=== PATIENT | male | born 1960 | race Caucasian/White ===

== ENCOUNTER → 2018-01-02 | Outpatient (CLI) | payer OTHER ==
[~2018-01-02] MED LIST: ATARAX,VISTARIL50 MG PO; CARBIDOPA/LEVOD1 TA1 PO; METHOCARBAMOL750 M1 PO; NEURONTIN300 MG PO; ZOFRAN4 MG PO
== END | disposition home or self-care (01) ==
LOC: RESCLI 01:20
DX: D53.9 Nutritional anemia, unspecified (principal); F19.10 Other psychoactive substance abuse, uncomplicated; R31.9 Hematuria, unspecified; R06.09 Other forms of dyspnea; G62.9 Polyneuropathy, unspecified; R03.0 Elevated blood-pressure reading, without diagnosis of hypertension; F17.210 Nicotine dependence, cigarettes, uncomplicated; Z71.6 Tobacco abuse counseling; Z76.89 Persons encountering health services in other specified circumstances; Z20.5 Contact with and (suspected) exposure to viral hepatitis

== ENCOUNTER → 2018-01-31 | Outpatient (CLI) | payer OTHER | END | disposition home or self-care (01) | LOC: RESCLI 03:40 | DX: I10 Essential (primary) hypertension (principal); F19.10 Other psychoactive substance abuse, uncomplicated; G62.9 Polyneuropathy, unspecified; D53.9 Nutritional anemia, unspecified; F14.10 Cocaine abuse, uncomplicated; R06.09 Other forms of dyspnea; Z72.0 Tobacco use; Z71.6 Tobacco abuse counseling; Z20.5 Contact with and (suspected) exposure to viral hepatitis ==

== ENCOUNTER → 2018-02-22 | Outpatient (CLI) | payer OTHER | END | disposition home or self-care (01) | LOC: RESCLI 01:37 → CP 03:11 → RESCLI 18:41 | DX: I10 Essential (primary) hypertension (principal); B19.20 Unspecified viral hepatitis C without hepatic coma; G25.81 Restless legs syndrome; G62.9 Polyneuropathy, unspecified; F19.10 Other psychoactive substance abuse, uncomplicated; Z79.899 Other long term (current) drug therapy; Z88.8 Allergy status to other drugs, medicaments and biological substances; Z87.891 Personal history of nicotine dependence ==

== ENCOUNTER 2018-07-30 12:37 | Inpatient (IN) | payer OTHER ==
[~2018-07-30] VITALS: Ht 175.3 cm; Wt 61.8 kg
--- NOTE | ~2018-07-30 | EKG ---
[place], [place] ELECTROCARDIOGRAM REPORT NAME: RAMÍREZ BOURGEOIS UNIT #: [id number] ROOM: 503 DOCTOR: SEVEN DRAFT REPORT BIRTHDATE: [birth year] [facility] Test Date: 2018-07-30 Test Time: 17:13:06 Pat Name: RAMÍREZ BOURGEOIS Department: Room: 503 2 Gender: M Director Of Procurement: 0012 : 1960 Requested By: LEONID BEINTES Order Number: [id number] Reading MD: Martín Castro MD Measurements Intervals [place] Rate: 93 P: 84 ME: 146 QRS: 70 QRSD: 86 T: 70 QT: 377 QTc: 469 Interpretive Statements Sinus rhythm with PACs Probable left atrial enlargement Electronically Signed On 07-30-2018 17:19:34 PST by Martín Castro MD CM:EKGRPT:ELECTROCARDIOGRAM REPORT 12 18 LEONID DURON DRAFT REPORT LEONID BENITES DO
[2018-07-30 14:30] VITALS: BP 123/88
[2018-07-30 14:39] LABS: BASO % 0.3 % (0.0-1.0); EOS % 0.3 % (1.0-4.0); HEMOGLOBIN 13.9 g/dl (14.0-18.0); LYMPH % 20.8 % (27.0-41.0); MEAN CORPUSCULAR HGB 33.1 pg (27.0-31.0); MEAN CORPUSCULAR HGB CONC 33.1 g/dl (33.0-37.0); MEAN PLATELET VOLUME 8.9 fl (9.6-12.3); MONO # 0.9 10*3/uL (0.1-1.0); MONO % 8.9 % (3.0-9.0); NEUT # 6.8 10*3/uL (2.3-7.9); NEUT % 69.4 % (47.0-73.0); PLATELET COUNT AUTOMATED 304 10*3/uL (130-400); RED CELL DISTRI WIDTH 13.5 % (0-14.5); WHITE BLOOD COUNT 9.8 10*3/uL (4.8-10.8)
[2018-07-30 14:54] LABS: ALBUMIN 3.7 gm/dl (3.1-4.5); ALKALINE PHOSPHATASE 93 U/L (45-117); BUN 12 mg/dl (7-24); CHLORIDE 103 mmol/L (98-107); CREATININE 0.78 mg/dL (0.70-1.30); POTASSIUM 4.4 mmol/L (3.5-5.1); SGOT/AST 29 IU/L (3-35); SGPT/ALT 34 U/L (12-78); SODIUM 137 mmol/L (136-145); TOTAL PROTEIN 8.4 gm/dL (6.4-8.2)
[2018-07-30 14:55] LABS: ETHYL ALCOHOL < 3.0 mg/dl (<3)
[2018-07-30 16:00] VITALS: BP 123/88
[2018-07-30 16:12] LABS: BILIRUBIN NEGATIVE (NEGATIVE); BLOOD NEGATIVE (NEGATIVE); CLARITY CLEAR (CLEAR); COLOR YELLOW (YELLOW); GLUCOSE NEGATIVE (NEGATIVE); KETONE NEGATIVE (NEGATIVE); LEUKO ESTERASE NEGATIVE (NEGATIVE); NITRITE NEGATIVE (NEGATIVE); SPECIFIC GRAVITY <= 1.005 (1.005-1.030); UROBILINOGEN 0.2 E.U./dl (0.2-1.0)
[2018-07-30 16:35] LABS: URINE AMPHETAMINES < 1000 (1000ng/ml); URINE BARBITURATES < 200 (200ng/ml); URINE BENZODIAZEPINES > 200 (200ng/ml); URINE CANNABINOIDS (THC) > 50 (50ng/ml); URINE COCAINE > 300 (300ng/ml); URINE METHADONE < 300 (300ng/ml); URINE OPIATES > 300 (300ng/ml)
[2018-07-30 16:42] LABS: URINE PHENCYCLIDINE < 25 (25ng/ml)
[2018-07-30 16:52] LABS: RBC 0-2 rbc/hpf (0-2); WBC 0-2 wbc/hpf (0-5)
[2018-07-30 20:00] VITALS: BP 116/63
[2018-07-31] VITALS: BP 140/74
[2018-07-31 04:00] VITALS: BP 138/70
[2018-07-31 08:00] VITALS: BP 130/68
[2018-07-31 12:00] VITALS: BP 132/73
[2018-07-31 16:00] VITALS: BP 115/71
[2018-07-31 20:00] VITALS: BP 131/76
[2018-08-01] VITALS: BP 124/80
[2018-08-01 08:00] VITALS: BP 116/62
[2018-08-01 12:00] VITALS: BP 112/62
[2018-08-01 16:00] VITALS: BP 111/41
[2018-08-01 20:00] VITALS: BP 123/72
[2018-08-02] VITALS: BP 140/59
[2018-08-02 06:36] LABS: CREATININE 0.67 mg/dL (0.70-1.30)
[2018-08-02 06:37] LABS: BASO % 0.5 % (0.0-1.0); EOS # 0.2 10*3/uL (0.0-0.4); EOS % 2.9 % (1.0-4.0); HEMATOCRIT 38.7 % (42.0-52.0); HEMOGLOBIN 12.5 g/dl (14.0-18.0); LYMPH # 2.1 10*3/uL (1.3-4.4); LYMPH % 38.7 % (27.0-41.0); MEAN CELL VOLUME 100.3 fl (80.0-94.0); MEAN CORPUSCULAR HGB 32.4 pg (27.0-31.0); MEAN CORPUSCULAR HGB CONC 32.3 g/dl (33.0-37.0); MEAN PLATELET VOLUME 9.2 fl (9.6-12.3); MONO # 0.6 10*3/uL (0.1-1.0); NEUT # 2.6 10*3/uL (2.3-7.9); NEUT % 46.4 % (47.0-73.0); PLATELET COUNT AUTOMATED 233 10*3/uL (130-400); RED BLOOD COUNT 3.86 10*6/uL (4.50-5.90); RED CELL DISTRI WIDTH 13.5 % (0-14.5); WHITE BLOOD COUNT 5.5 10*3/uL (4.8-10.8)
[2018-08-02 08:00] VITALS: BP 124/60
[2018-08-02] MEDS ORDERED: ZOFRAN 4 MG ED2 TAB PO (10:55)
[2018-08-02] MEDS ORDERED: ATARAX,VISTARIL50 MG PO (10:55)
[2018-08-02] MEDS ORDERED: ATIVAN0.5 MG PO (10:55)
== END 2018-08-02 11:08 | disposition home or self-care (01) | DRG 897 ==
LOC: 5E 12:37
PROVIDERS: Family Medicine; Internal Medicine
DX: F11.23 Opioid dependence with withdrawal (principal); F13.10 Sedative, hypnotic or anxiolytic abuse, uncomplicated; F10.230 Alcohol dependence with withdrawal, uncomplicated; F14.10 Cocaine abuse, uncomplicated; F17.210 Nicotine dependence, cigarettes, uncomplicated; D53.9 Nutritional anemia, unspecified; F41.9 Anxiety disorder, unspecified; F32.9 Major depressive disorder, single episode, unspecified; Z71.6 Tobacco abuse counseling; Z90.49 Acquired absence of other specified parts of digestive tract; Z80.1 Family history of malignant neoplasm of trachea, bronchus and lung

== ENCOUNTER → 2018-08-10 | Outpatient (CLI) | payer OTHER ==
[~2018-08-10] MED LIST changes: +ATIVAN0.5 MG PO; +ROPINIROLE HYD0.5 MG PO; +TRAZODONE50 MG PO; +ZOFRAN 4 MG ED2 TAB PO
[2018-08-10 12:01] LABS: URINE AMPHETAMINES < 1000 (1000ng/ml); URINE BARBITURATES < 200 (200ng/ml); URINE BENZODIAZEPINES > 200 (200ng/ml); URINE CANNABINOIDS (THC) > 50 (50ng/ml); URINE COCAINE < 300 (300ng/ml); URINE METHADONE < 300 (300ng/ml); URINE OPIATES > 300 (300ng/ml)
[2018-08-10 12:03] LABS: URINE PHENCYCLIDINE < 25 (25ng/ml)
== END | disposition home or self-care (01) ==
LOC: RESCLI 04:00
PROVIDERS: Internal Medicine Nephrology
DX: Z09 Encounter for follow-up examination after completed treatment for conditions other than malignant neoplasm (principal); J44.9 Chronic obstructive pulmonary disease, unspecified; F41.9 Anxiety disorder, unspecified; B19.20 Unspecified viral hepatitis C without hepatic coma; G62.9 Polyneuropathy, unspecified; F13.20 Sedative, hypnotic or anxiolytic dependence, uncomplicated; F10.29 Alcohol dependence with unspecified alcohol-induced disorder; F11.20 Opioid dependence, uncomplicated; F14.29 Cocaine dependence with unspecified cocaine-induced disorder; F17.210 Nicotine dependence, cigarettes, uncomplicated; Z90.49 Acquired absence of other specified parts of digestive tract; Z88.8 Allergy status to other drugs, medicaments and biological substances; Z79.899 Other long term (current) drug therapy

== ENCOUNTER → 2018-09-05 | Outpatient (CLI) | payer OTHER ==
[2018-09-05 10:32] LABS: URINE AMPHETAMINES < 1000 (1000ng/ml); URINE BARBITURATES > 200 (200ng/ml); URINE BENZODIAZEPINES > 200 (200ng/ml); URINE CANNABINOIDS (THC) < 50 (50ng/ml); URINE COCAINE < 300 (300ng/ml); URINE METHADONE < 300 (300ng/ml); URINE OPIATES < 300 (300ng/ml)
[2018-09-05 10:33] LABS: URINE PHENCYCLIDINE < 25 (25ng/ml)
== END | disposition home or self-care (01) ==
LOC: RESCLI 02:49
PROVIDERS: Internal Medicine
DX: I10 Essential (primary) hypertension (principal); F13.20 Sedative, hypnotic or anxiolytic dependence, uncomplicated; F10.29 Alcohol dependence with unspecified alcohol-induced disorder; F11.20 Opioid dependence, uncomplicated; F14.29 Cocaine dependence with unspecified cocaine-induced disorder; F41.9 Anxiety disorder, unspecified; B19.20 Unspecified viral hepatitis C without hepatic coma; J44.9 Chronic obstructive pulmonary disease, unspecified; G62.9 Polyneuropathy, unspecified; H93.12 Tinnitus, left ear; H91.92 Unspecified hearing loss, left ear; F17.210 Nicotine dependence, cigarettes, uncomplicated; Z91.19 Patient's noncompliance with other medical treatment and regimen; Z71.6 Tobacco abuse counseling; Z79.899 Other long term (current) drug therapy; Z88.8 Allergy status to other drugs, medicaments and biological substances

== ENCOUNTER 2018-09-11 09:22 | Inpatient (IN) | payer OTHER ==
--- NOTE | ~2018-09-11 | EKG ---
[place], [place] ELECTROCARDIOGRAM REPORT NAME: RAMÍREZ BOURGEOIS UNIT #: [id number] ROOM: 426 DOCTOR: EPIPHANY DRAFT REPORT BIRTHDATE: [birth year] [facility] Test Date: 2018-09-11 Test Time: 12:42:58 Pat Name: RAMÍREZ BOURGEOIS Department: Room: 426 1 Gender: M Dental Coordinator: : 1960 Requested By: JACKIE DALLAS Order Number: [id number] Reading MD: Martín Castro MD Measurements Intervals [place] Rate: 75 P: 87 ID: 155 QRS: 60 QRSD: 90 T: 58 QT: 396 QTc: 443 Interpretive Statements Sinus rhythm Consider left atrial enlargement Probable anteroseptal infarct, old Compared to ECG 07/30/2018 17:13:06 Myocardial infarct finding now present Electronically Signed On 09-11-2018 20:16:41 PST by Martín Castro MD CM:EKGRPT:ELECTROCARDIOGRAM REPORT 1242 15 JACKIE DALLAS EPIPHANY DRAFT REPORT AJCKIE DALLAS
[~2018-09-11 09:22] MED LIST changes: -ROPINIROLE HYD0.5 MG PO; -TRAZODONE50 MG PO
[2018-09-11 10:40] VITALS: BP 156/83
--- NOTE | 2018-09-11 10:40 | NUR ---
Time: 1039 A 58 year old MALE admitted to under services of NOHEMI JEROME DO. Pt. arrived via AMBULATORY from [facility]. Chief complaint: HERE FOR MEDICAL STABILIZATION FROM [facility] . LIZA BEYER
[2018-09-11 11:39] LABS: BILIRUBIN NEGATIVE (NEGATIVE); BLOOD TRACE-INTACT (NEGATIVE); CLARITY CLEAR (CLEAR); COLOR YELLOW (YELLOW); GLUCOSE NEGATIVE (NEGATIVE); KETONE NEGATIVE (NEGATIVE); LEUKO ESTERASE NEGATIVE (NEGATIVE); NITRITE NEGATIVE (NEGATIVE); UROBILINOGEN 0.2 E.U./dl (0.2-1.0)
[2018-09-11 11:46] LABS: BASO % 0.4 % (0.0-1.0); EOS # 0.1 10*3/uL (0.0-0.4); EOS % 1.7 % (1.0-4.0); HEMOGLOBIN 13.2 g/dl (14.0-18.0); LYMPH # 1.9 10*3/uL (1.3-4.4); MEAN CORPUSCULAR HGB 32.7 pg (27.0-31.0); MONO # 0.7 10*3/uL (0.1-1.0); NEUT # 2.6 10*3/uL (2.3-7.9); NEUT % 48.5 % (47.0-73.0); PLATELET COUNT AUTOMATED 221 10*3/uL (130-400); RED BLOOD COUNT 4.04 10*6/uL (4.50-5.90); RED CELL DISTRI WIDTH 13.6 % (0-14.5); WHITE BLOOD COUNT 5.3 10*3/uL (4.8-10.8)
[2018-09-11 12:00] VITALS: BP 167/88
[2018-09-11 12:01] LABS: ALBUMIN 4.1 gm/dl (3.1-4.5); ALKALINE PHOSPHATASE 89 U/L (45-117); BUN 10 mg/dl (7-24); CHLORIDE 103 mmol/L (98-107); CREATININE 0.74 mg/dL (0.70-1.30); POTASSIUM 4.3 mmol/L (3.5-5.1); SGOT/AST 28 IU/L (3-35); SGPT/ALT 42 U/L (12-78); SODIUM 140 mmol/L (136-145)
[2018-09-11 12:02] LABS: URINE AMPHETAMINES < 1000 (1000ng/ml); URINE BARBITURATES > 200 (200ng/ml); URINE BENZODIAZEPINES < 200 (200ng/ml); URINE CANNABINOIDS (THC) < 50 (50ng/ml); URINE COCAINE > 300 (300ng/ml); URINE METHADONE < 300 (300ng/ml); URINE OPIATES > 300 (300ng/ml)
[2018-09-11 12:03] LABS: RBC 0-2 rbc/hpf (0-2); WBC 0-2 wbc/hpf (0-5)
[2018-09-11 12:11] LABS: URINE PHENCYCLIDINE < 25 (25ng/ml)
[2018-09-11 12:11] LABS: ETHYL ALCOHOL < 3.0 mg/dl (<3)
--- NOTE | 2018-09-11 12:51 | NUR ---
PATIENT RECIEVED FIRST DOSE OF SUBUTEX AND LIBRIUM AT THIS TIME. PATIENT ALSO MEDICATED WITH BENTYL. MOTRIN, AND ROBAXIN. PATIENT COMPLAINING OF RESTLESS LEGS, ANXIETY, AND UPSET STOMACH AT THIS TIME. WILL MONITOR FOR EFFECTIVENESS.
--- NOTE | 2018-09-11 14:51 | NUR ---
DR. TAN ANSWERING SERVICE CALLED AT THIS TIME AND MADE AWARE OF NEW CONSULT.
[2018-09-11 16:00] VITALS: BP 147/76
--- NOTE | 2018-09-11 16:08 | NUR ---
ATTEMPTED TO CALL DR. TAN OFFICE AND CELL PHONE AT THIS TIME TO MAKE AWARE OF NEW CONSULT BEING CANCELLED. NO ANSWER FROM EITHER PHONE. WILL TRY AGAIN LATER.
[2018-09-11 20:00] VITALS: BP 151/74
[2018-09-12] VITALS: BP 151/68
[2018-09-12 08:00] VITALS: BP 139/78
--- NOTE | 2018-09-12 08:21 | NUR ---
C/O RESTLESS LEGS, ANXIETY AND LEG CRAMPS. GIVEN REQUIP, ROBAXIN AND VISTARIL. WILL CONT TO MONITOR. CALL LIGHT IN REACH.
--- NOTE | 2018-09-12 09:21 | NUR ---
REQUIP ROBAXIN AND VISTARIL EFF. PT REQUESTED LAXATIVE. NOTIFIED. DOES NOT WANT STOOL SOFTENER.
[2018-09-12 12:00] VITALS: BP 132/72
--- NOTE | 2018-09-12 15:26 | NUR ---
C/O ANXIETY, RESTLESS LEGS AND LEG CRAMPS. GIVEN VISTARIL AND ROBAXIN AT THIS TIME. WILL CONT TO MONITOR. CALL LIGHT IN REACH.
[2018-09-12 16:00] VITALS: BP 119/67
--- NOTE | 2018-09-12 16:05 | NUR ---
[place] STAFF FOLLOWED UP WITH PATIENT. PATIENT'S DICHARGE PLAN REMAINS THE SAME. PATIENT WILL GO TO [place] IN [place] FOR COUNSELING. MICAELA BASS B.A. PLANT CARE WORKER
--- NOTE | 2018-09-12 16:26 | NUR ---
ROBAXIN AND VISTARIL EFF. WILL CONT TO MONITOR. CALL LIGHT IN REACH.
[2018-09-12 20:00] VITALS: BP 138/71
--- NOTE | 2018-09-12 21:23 | NUR ---
PATIENT MEDICATED WITH REQUIP AT THIS TIME. WILL CONTINUE TO MONITOR.
[2018-09-13] VITALS: BP 129/70
--- NOTE | 2018-09-13 02:23 | NUR ---
PATIENT MEDICATED WITH BENTYL, ROBAXIN AND VISTARIL FOR COMPLAINTS OF WITHDRAWING. WILL CONTINUE TO MONITOR. CALL LIGHT IN REACH.
--- NOTE | 2018-09-13 04:45 | NUR ---
24 HR chart check completed.
[2018-09-13 08:00] VITALS: BP 139/73
--- NOTE | 2018-09-13 09:49 | NUR ---
PATIENT REQUESTING MEDICATION FOR MUSCLE ACHES, RESTLESSNESS, AND ANXIETY. ROBAXIN, REQUIP, AND VISTERIL ADMINISTERED PRESCRIBED. WILL MONITOR FOR EFFECTIVENESS.
--- NOTE | 2018-09-13 10:49 | NUR ---
PATIENT RESTING COMFORTABLY AT THIS TIME IN BED. NO COMPLAINTS AT THIS TIME. MEDICATIONS EFFECTIVE FOR ANXIETY, RESTLESSNESS, AND MUSCLE SPASMS. WILL CONTINUE TO MONITOR.
--- NOTE | 2018-09-13 11:12 | NUR ---
PATIENT HAS BEEN SCHEDULED WITH [facility] IN [place], [place] FOR OUTPATIENT COUNSELING. PATIENT IS SCHEDULED TO BE SEEN ON SEPTEMBER 18, 2018 AT 11:00AM. PATIENT UNDERSTANDS HIS AFTERCARE PLAN. ROSEANNA PRATT MS FIELD STAFF MANAGER
[2018-09-13 12:00] VITALS: BP 137/68
[2018-09-13 16:00] VITALS: BP 135/71
--- NOTE | 2018-09-13 18:10 | NUR ---
PATIENT REQUESTING MEDICATION FOR MUSCLE ACHES AND ANXIETY. ROBAXIN AND VISTERIL ADMINISTERED PRESCRIBED. WILL MONITOR FOR EFFECTIVENESS.
--- NOTE | 2018-09-13 19:10 | NUR ---
PATIENT RESTING IN BED AT THIS TIME. DENIES ANY MUSCLES ACHES AT THIS TIME. WILL MONITOR.
[2018-09-13 20:00] VITALS: BP 129/71
[2018-09-14] VITALS: BP 153/78
--- NOTE | 2018-09-14 00:41 | NUR ---
PT C/O RESTLESS LEGS, MUSCLE ACHES, AND ANXIETY. REQUIP, ROBAXIN, AND VISTARIL GIVEN AT THIS TIME. WILL MONITOR FOR EFFECTIVENESS. CALL LIGHT IN REACH.
--- NOTE | 2018-09-14 01:40 | NUR ---
REQUIP, ROBAXIN, AND VISTARIL EFFECTIVE PER PT.
[2018-09-14 06:53] LABS: BASO % 0.5 % (0.0-1.0); EOS # 0.2 10*3/uL (0.0-0.4); EOS % 3.9 % (1.0-4.0); HEMATOCRIT 38.5 % (42.0-52.0); HEMOGLOBIN 12.1 g/dl (14.0-18.0); LYMPH # 2.3 10*3/uL (1.3-4.4); LYMPH % 41.9 % (27.0-41.0); MEAN CELL VOLUME 101.6 fl (80.0-94.0); MEAN CORPUSCULAR HGB 31.9 pg (27.0-31.0); MEAN CORPUSCULAR HGB CONC 31.4 g/dl (33.0-37.0); MEAN PLATELET VOLUME 9.3 fl (9.6-12.3); MONO # 0.8 10*3/uL (0.1-1.0); MONO % 14.7 % (3.0-9.0); NEUT # 2.2 10*3/uL (2.3-7.9); NEUT % 38.8 % (47.0-73.0); PLATELET COUNT AUTOMATED 203 10*3/uL (130-400); RED BLOOD COUNT 3.79 10*6/uL (4.50-5.90); RED CELL DISTRI WIDTH 13.6 % (0-14.5); WHITE BLOOD COUNT 5.6 10*3/uL (4.8-10.8)
[2018-09-14 07:00] LABS: CREATININE 0.82 mg/dL (0.70-1.30)
[2018-09-14 08:00] VITALS: BP 156/92
[2018-09-14] MEDS ORDERED: ROPINIROLE HYD0.5 MG PO (10:19)
[2018-09-14] MEDS ORDERED: ZOFRAN4 MG PO (10:19)
[2018-09-14] MEDS ORDERED: ATARAX,VISTARIL50 MG PO (10:19)
[2018-09-14] MEDS ORDERED: TRAZODONE50 MG PO (10:24)
--- NOTE | 2018-09-14 13:00 | NUR ---
Discharge instructions reviewed with patient/family. Patient receptive and verbalizes understanding. Follow-up care arranged. Written instructions given to patient/family. PT AWAKE OF APPT ON 09/18/18. AVA BUNDY
== END 2018-09-14 13:00 | disposition home or self-care (01) | DRG 897 ==
LOC: 4E 09:22
PROVIDERS: Internal Medicine; ADMIT Internal Medicine
DX: F11.23 Opioid dependence with withdrawal (principal); D53.9 Nutritional anemia, unspecified; F13.10 Sedative, hypnotic or anxiolytic abuse, uncomplicated; F19.90 Other psychoactive substance use, unspecified, uncomplicated; F17.210 Nicotine dependence, cigarettes, uncomplicated; F14.90 Cocaine use, unspecified, uncomplicated; R31.21 Asymptomatic microscopic hematuria; R06.82 Tachypnea, not elsewhere classified; Z71.6 Tobacco abuse counseling; Z90.49 Acquired absence of other specified parts of digestive tract; Z80.1 Family history of malignant neoplasm of trachea, bronchus and lung